=== PATIENT | female | born 1990 | race African-American/Black ===

== ENCOUNTER 2022-03-06 19:35 | Observation (INO) ==
[2022-03-06 21:22] LABS: Basophils # 0.1 10*3/uL (0.0-0.2); Basophils % 0.7 % (0.0-0.8); Eosinophils % 0.4 % (0.00-10.9); Hematocrit 38.4 VOL% (35.7-47.0); Hemoglobin 13.7 GM/DL (12.0-16.0); Immature Granulocytes % 0.1 %; Immature Granulocytes Absolute 0.01 #; Lymphocytes # 3.5 10*3/uL (1.4-4.0); Lymphocytes % 48.9 % (21.3-54.2); Mean Corpuscular HGB Conc 35.7 GM/DL (32-36); Mean Corpuscular Volume 92.1 FL (87-102); Mean Platelet Volume 10.2 FL (9.6-12.0); Monocytes # 0.7 10*3/uL (0.11-0.8); Monocytes % 9.3 % (1.7-12.7); Neutrophils % 40.6 % (38.7-73.9); Platelet Count 214 T/CUMM (130-400); Red Blood Count 4.17 MC/CUMM (3.8-5.5); Red Cell Distribution Width 12.3 % (9.3-17.3); White Blood Count 7.1 T/CUMM (4-12)
[2022-03-06 21:29] LABS: Alanine Aminotransferase 1665 U/L (13-56); Albumin 1.8 G/DL (3.4-5.0); Alkaline Phosphatase 139 U/L (45-117); Aspartate Amino Transferase > 2002 U/L (0-37); Blood Urea Nitrogen 23 MG/DL (7-18); Calcium 8.2 MG/DL (8.5-10.1); Carbon Dioxide 16 MMOL/L (21-32); Chloride 104 MMOL/L (98-107); Glucose 86 MG/DL (74-106); Osmolality,Calculated 281.4 MOS/KG (273-304); Potassium 4.2 MMOL/L (3.5-5.1); Sodium 140 MMOL/L (136-145); Total Protein 5.4 G/DL (6.4-8.2)
[2022-03-06] MEDS ORDERED: ONDANSETRON 4 MG/2 ML VIAL IV STA (22:44)
[2022-03-06] MEDS ORDERED: MORPHINE 2 MG/1 ML SYRINGE IV STA (22:44)
[2022-03-06] MEDS ORDERED: SODIUM CHLORIDE 0.9% 1,000 ML IV STA (22:44)
[2022-03-06 23:14] LABS: Hepatitis B Core IgM Quant 0.14 Index; Hepatitis B Surface Ag Quant < 0.10 Index; Hepatitis B Surface Ag Result Non-Reactive (NonReactive); Hepatitis C Virus Ab Quant < 0.02 Index; Hepatitis C Virus Ab Result Non-Reactive (NonReactive)
[2022-03-07 00:29] LABS: Bacteria,Urine Occasional /HPF (Few); Mucus,Urine Occasional /LPF (Occasional); RBC,Urine 1 /HPF (0-4); Squamous Epithelial Cell,Urine Occasional /HPF (0-10); Urine Appearance Clear (Clear); Urine Color Yellow (Yellow)
[2022-03-07 00:30] LABS: Bilirubin,Urine Negative (Negative); Blood, Urine Negative (Negative); Glucose,Urine (UA) Negative (Negative); Ketones,Urine Negative (Negative); Nitrite,Urine Negative (Negative); Protein,Urine Negative (Negative); Urine Specific Gravity 1.015 (1.001-1.035); Urine Urobilinogen 0.2 eU/dL (<2.0)
[2022-03-07 00:38] LABS: Barbiturates Screen,Urine Negative (Negative); Benzodiazepines Screen,Urine Negative (Negative); Cannabinoid Screen,Urine Negative (Negative); Opiate Screen,Urine Negative (Negative); Phencyclidine Screen,Urine Negative (Negative)
[2022-03-07] MEDS ORDERED: GLUCAGON 1 MG VIAL IM PRN (00:52)
[2022-03-07] MEDS ORDERED: DEXTROSE 10% 250 ML BAG IV PRN (00:52)
[2022-03-07] MEDS ORDERED: ONDANSETRON 4 MG/2 ML VIAL IV PRN (00:56)
[2022-03-07] MEDS ORDERED: MORPHINE 2 MG/1 ML SYRINGE IV PRN (00:56)
[2022-03-07 01:05] LABS: INR 0.9; PT Patient Result 10.3 SECS (10.1-12.1); Partial Thromboplastin Time 27.3 SECS (23.7-32.9)
[2022-03-07 02:26] LABS: Alanine Aminotransferase 27 U/L (13-56); Albumin 3.1 G/DL (3.4-5.0); Alkaline Phosphatase 32 U/L (45-117); Aspartate Amino Transferase 18 U/L (0-37); Bilirubin,Total < 0.39 MG/DL (0.20-1.00); Blood Urea Nitrogen 9 MG/DL (7-18); Calcium 8.4 MG/DL (8.5-10.1); Carbon Dioxide 23 MMOL/L (21-32); Chloride 111 MMOL/L (98-107); Cholesterol 140 MG/DL (50-200); Glucose 98 MG/DL (74-106); HDL Cholesterol 37 MG/DL (40-60); Osmolality,Calculated 277.4 MOS/KG (273-304); Potassium 3.7 MMOL/L (3.5-5.1); Risk Ratio 3.78; Sodium 140 MMOL/L (136-145); Total Protein 6.8 G/DL (6.4-8.2); Triglycerides 103 MG/DL (2-150); VLDL Cholesterol 20.6 MG/DL
[2022-03-07] MEDS: SODIUM CHLORIDE 0.9% 1,000 ML IV SCH ×3 (02:36→18:34)
[2022-03-07 05:36] LABS: Basophils % 0.2 % (0.0-0.8); Eosinophils % 0.4 % (0.00-10.9); Hematocrit 35.9 VOL% (35.7-47.0); Hemoglobin 12.5 GM/DL (12.0-16.0); Immature Granulocytes % 0.2 %; Immature Granulocytes Absolute 0.02 #; Lymphocytes # 3.6 10*3/uL (1.4-4.0); Lymphocytes % 44.8 % (21.3-54.2); Mean Corpuscular HGB Conc 34.8 GM/DL (32-36); Mean Corpuscular Volume 92.8 FL (87-102); Mean Platelet Volume 10.9 FL (9.6-12.0); Monocytes # 0.6 10*3/uL (0.11-0.8); Monocytes % 7.4 % (1.7-12.7); Platelet Count 197 T/CUMM (130-400); Red Blood Count 3.87 MC/CUMM (3.8-5.5); Red Cell Distribution Width 12.3 % (9.3-17.3); White Blood Count 8.1 T/CUMM (4-12)
[2022-03-07 07:22] LABS: Albumin 2.8 G/DL (3.4-5.0); Bilirubin,Direct 0.16 MG/DL (0.0-0.20); Bilirubin,Indirect 0.3 MG/DL (0.0-1.0); Bilirubin,Total 0.5 MG/DL (0.20-1.00)
[2022-03-07 07:27] LABS: Basophils % 0.3 % (0.0-0.8); Eosinophils % 0.4 % (0.00-10.9); Hematocrit 37.6 VOL% (35.7-47.0); Hemoglobin 13.4 GM/DL (12.0-16.0); Immature Granulocytes % 0.1 %; Immature Granulocytes Absolute 0.01 #; Lymphocytes # 2.7 10*3/uL (1.4-4.0); Lymphocytes % 36.9 % (21.3-54.2); Mean Corpuscular HGB Conc 35.6 GM/DL (32-36); Mean Corpuscular Volume 92.4 FL (87-102); Mean Platelet Volume 10.5 FL (9.6-12.0); Monocytes # 0.5 10*3/uL (0.11-0.8); Monocytes % 7.4 % (1.7-12.7); Neutrophils % 54.9 % (38.7-73.9); Platelet Count 205 T/CUMM (130-400); Red Blood Count 4.07 MC/CUMM (3.8-5.5); Red Cell Distribution Width 12.4 % (9.3-17.3); White Blood Count 7.3 T/CUMM (4-12)
[2022-03-07 07:29] LABS: Osmolality,Calculated 279.3 MOS/KG (273-304); Potassium 3.8 MMOL/L (3.5-5.1)
[2022-03-07] MEDS ORDERED: PANTOPRAZOLE 40 MG TABLET PO SCH (09:00)
[2022-03-07] MEDS: ENOXAPARIN 30 MG/0.3 ML SYRINGE SUBCUT SCH (10:22)
[2022-03-07] MEDS ORDERED: KETOROLAC 30 MG/1 ML VIAL IV ONE (12:22)
[2022-03-07] MEDS ORDERED: ALUM/MAG/SIMETH/LIDO VISC 1:1 30 ML BOTTLE PO ONE (14:58)
[2022-03-07] MEDS ORDERED: NITROGLYCERIN SL 0.4 MG TABLET SL ONE (15:48)
[2022-03-07] MEDS ORDERED: NITROGLYCERIN SL 0.4 MG TABLET SL PRN (15:48)
[2022-03-07] MEDS ORDERED: CALCIUM CARBONATE CHEW 500 MG TABLET PO PRN (16:41)
[2022-03-07] MEDS ORDERED: ACETAMINOPHEN 325 MG TABLET PO PRN (21:09)
[2022-03-07] MEDS: PANTOPRAZOLE 40 MG TABLET PO SCH (21:45)
[2022-03-08] MEDS: PANTOPRAZOLE 40 MG TABLET PO SCH (08:29)
[2022-03-08] MEDS: ENOXAPARIN 30 MG/0.3 ML SYRINGE SUBCUT SCH (08:29)
[2022-03-08 10:14] VITALS: BP 105/70
== END 2022-03-08 10:55 | disposition home or self-care (01) ==
LOC: N.ED 19:35 → N.EDINP 19:35 → SUATTDRO 03-07 00:52 → N.EDINP 03-07 01:58 → N.TELES 03-07 02:03
PROVIDERS: ADMIT Hospitalist; ATTEND Internal Medicine